=== PATIENT | female | born 1955 | race Caucasian/White ===

== ENCOUNTER → 2016-12-05 | Outpatient (CLI) | payer OTHER ==
[2016-12-05 09:34] LABS: HEMATOCRIT 43.9 % (37-47); MEAN CELL VOLUME 86.9 fL (80-100); MEAN CORPUSCULAR HEMOGLOBIN 30.3 pg (25-34); MEAN CORPUSCULAR HGB CONC 34.9 g/dl (32-36); MEAN PLATELET VOLUME 12.1 fL (7.4-10.4); PLATELET COUNT 240 K/uL (130-400); RED BLOOD COUNT 5.05 M/uL (4.2-5.4); WHITE BLOOD COUNT 6.32 K/uL (4.8-10.8)
[2016-12-05 09:57] LABS: ALT/SGPT 34 U/L (12-78); AST/SGOT 15 U/L (15-37); BLOOD UREA NITROGEN 17 mg/dl (7-18); BUN/CREATININE RATIO 27.5 (10-20); CALCIUM 9.6 mg/dl (8.5-10.1); CARBON DIOXIDE 28 mmol/L (21-32); CHLORIDE 102 mmol/L (98-107); CHOLESTEROL 146 mg/dl (0-200); CREATININE 0.63 mg/dl (0.60-1.20); GLUCOSE 111 mg/dl (70-99); POTASSIUM 3.9 mmol/L (3.5-5.1); SODIUM 138 mmol/L (136-145); TRIGLYCERIDES 91 mg/dl (0-150); VERY LOW DENSITY LIPOPROT CALC 18 mg/dl
[2016-12-05 10:07] LABS: ALB/GLOB RATIO 1.4 (0.9-2); ALKALINE PHOSPHATASE 63 U/L (45-117); CHOLESTEROL/HDL RATIO 2.4; HDL CHOLESTEROL 60 mg/dl; LDL CHOLESTEROL CALCULATED 68 mg/dl
[2016-12-05 10:09] LABS: ESTIMATED AVERAGE GLUCOSE 120 mg/dl; HA1C FLAG Normal (Normal)
== END | disposition home or self-care (01) ==
LOC: C.LAB 07:20
PROVIDERS: ATTEND Family Medicine
DX: Z00.00 Encounter for general adult medical examination without abnormal findings (principal); E78.5 Hyperlipidemia, unspecified; R73.03 Prediabetes

== ENCOUNTER → 2017-03-27 | Outpatient (CLI) | payer OTHER | END | disposition home or self-care (01) | LOC: C.PAPS 15:40 | PROVIDERS: ATTEND Obstetrics & Gynecology | DX: Z01.419 Encounter for gynecological examination (general) (routine) without abnormal findings (principal) ==

== ENCOUNTER → 2017-03-29 | Outpatient (CLI) | payer OTHER ==
--- NOTE | 2017-03-29 15:21 | MAMMOGRAPHY REPORT ---
BILATERAL DIGITAL SCREENING MAMMOGRAM WITH CAD: 03/29/2017 CLINICAL HISTORY: Routine screening. Patient has no complaints. TECHNIQUE: Current study was also evaluated with a Computer Aided Detection (CAD) system. Bilateral CC and MLO views were obtained. COMPARISON: Comparison is made to exams dated: 03/27/2016 mammogram, 03/23/2015 mammogram, 03/06/2014 ma mmogram, 03/05/2013 mammogram, 12/19/2011 mammogram, and 11/07/2010 mammogram - [facility]. BREAST COMPOSITION: There are scattered areas of fibroglandular density in both breasts. FINDINGS: No suspicious masses, calcifications, or areas of architectural distortion are noted in ei ther breast. There has been no significant interval change compared to prior exams. IMPRESSION: ACR BI-RADS CATEGORY 1: NEGATIVE There is no mammographic evidence of malignancy. A 1 year screening mammogram is recommended. The pa tient will receive written notification of the results. Approximately 10% of breast cancers are not detected with mammography. A negative mammographic report should not delay biopsy if a clinically suggestive mass is present. Marcie Westfall M.D. /:03/29/2017 12:04:08 Dry Cell And Battery Assembler: Marsha JONES(Red)(Mabel)(BD), [facility] letter sent: Normal 1/2 BI-RADS Code: ACR BI-RADS Category 1: Negative
== END | disposition home or self-care (01) ==
LOC: C.MAMM 08:25
PROVIDERS: ATTEND Obstetrics & Gynecology
DX: Z12.31 Encounter for screening mammogram for malignant neoplasm of breast (principal)

== ENCOUNTER → 2017-06-01 | Outpatient (CLI) | payer OTHER ==
[2017-06-01 12:39] LABS: ALT/SGPT 73 U/L (12-78); BLOOD UREA NITROGEN 17 mg/dl (7-18); BUN/CREATININE RATIO 24.8 (10-20); CALCIUM 9.4 mg/dl (8.5-10.1); CARBON DIOXIDE 30 mmol/L (21-32); CHLORIDE 103 mmol/L (98-107); CHOLESTEROL 136 mg/dl (0-200); CREATININE 0.69 mg/dl (0.60-1.20); GLUCOSE 109 mg/dl (70-99); POTASSIUM 4.1 mmol/L (3.5-5.1); SODIUM 138 mmol/L (136-145); TRIGLYCERIDES 59 mg/dl (0-150); VERY LOW DENSITY LIPOPROT CALC 12 mg/dl
[2017-06-01 12:42] LABS: ALB/GLOB RATIO 1.6 (0.9-2); ALKALINE PHOSPHATASE 69 U/L (45-117); AST/SGOT 31 U/L (15-37); CHOLESTEROL/HDL RATIO 2.4; HDL CHOLESTEROL 56 mg/dl; LDL CHOLESTEROL CALCULATED 68 mg/dl
[2017-06-01 13:11] LABS: ESTIMATED AVERAGE GLUCOSE 123 mg/dl; HA1C FLAG Normal (Normal)
== END | disposition home or self-care (01) ==
LOC: C.LABPBG 08:48
PROVIDERS: ATTEND Family Medicine
DX: E78.5 Hyperlipidemia, unspecified (principal); R73.03 Prediabetes

== ENCOUNTER → 2018-04-03 | Outpatient (CLI) | payer BC ==
--- NOTE | 2018-04-04 08:09 | MAMMOGRAPHY REPORT ---
BILATERAL DIGITAL SCREENING MAMMOGRAM TOMOSYNTHESIS WITH CAD: 04/03/2018 CLINICAL HISTORY: Routine screening. Patient has no complaints. TECHNIQUE: The study was acquired using full field digital technology and interpreted from soft copy. Tomosynthesis (3D imaging) was done in the CC and MLO projections. A C-view reconstruction was then done. Current study was also evaluated with a Computer Aided Detection (CAD) system. COMPARISON: Comparison is made to exams dated: 03/29/2017 mammogram, 03/27/2016 mammogram, 03/23/2015 ma mmogram, 03/06/2014 mammogram, 03/05/2013 mammogram, and 12/19/2011 mammogram - [facility]. BREAST COMPOSITION: There are scattered areas of fibroglandular density in both breasts. FINDINGS: There are minimal vascular calcifications in the breasts. An asymmetry in the superior rig ht breast on the MLO view appears stable dating back to at least 2007, therefore likely benign. No ne w suspicious mass, architectural distortion or cluster of microcalcifications is seen. IMPRESSION: ACR BI-RADS CATEGORY 1: NEGATIVE There is no mammographic evidence of malignancy. A 1 year screening mammogram is recommended.( 019) The patient will receive written notification of the results. Approximately 10% of breast cancers are not detected with mammography. A negative mammographic report should not delay biopsy if a clinically suggestive mass is present. Bertha Brooke M.D. ay/:04/03/2018 09:18:30 Powerhouse Laborer: RT Ramses(Red)(Mabel)(BD), [facility] letter sent: Normal 1/2 BI-RADS Code: ACR BI-RADS Category 1: Negative
== END | disposition home or self-care (01) ==
LOC: C.MAMM 08:27
PROVIDERS: ATTEND Obstetrics & Gynecology
DX: Z12.31 Encounter for screening mammogram for malignant neoplasm of breast (principal)

== ENCOUNTER → 2018-04-09 | Outpatient (CLI) | payer BC | END | disposition home or self-care (01) | LOC: C.PAPS 15:04 | PROVIDERS: ATTEND Obstetrics & Gynecology | DX: Z01.419 Encounter for gynecological examination (general) (routine) without abnormal findings (principal) ==

== ENCOUNTER 2022-11-09 05:59 | Observation (INO) ==
--- NOTE | 2022-10-31 15:27 | PAT Medication Instructions ---
Medication Instructions Date of Service October 31, 2022 Home Medications Medication Instructions Recorded triamcinolone acetonide 0.1 % 1 applic topical BID PRN rash #80 08/16/22 topical cream grams doxycycline hyclate 100 mg capsule 200 mg PO ONCE PRN tick bites #10 10/19/22 caps metformin 1,000 mg tablet 1,000 mg PO BID #180 tabs 10/19/22 multivitamin 1 tab PO QAM calcium carbonate 600 mg-vitamin D3 5 mcg (200 unit) capsule (Calcium 600 + D(3)) 1 cap PO BID triamcinolone acetonide 0.1 % topical cream 1 applic topical BID PRN rash doxycycline hyclate 100 mg capsule 200 mg PO ONCE PRN tick bites metformin 1,000 mg tablet 1,000 mg PO BID Relief Factor 1 packet PO QAM ascorbic acid (vitamin C) 500 mg tablet (Vitamin C) 500 mg PO QAM rosuvastatin 20 mg tablet 20 mg PO HS sour bailon extract 1,000 mg capsule 2,000 mg PO QAM Continue as directed doxycycline hyclate 100 mg capsule 200 mg PO ONCE PRN tick bites (if needed) STOP taking 2 weeks before surgery (or as soon as possible if surgery is within 2 weeks) Relief Factor 1 packet PO QAM sour bailon extract 1,000 mg capsule 2,000 mg PO QAM STOP taking 24 hours before surgery triamcinolone acetonide 0.1 % topical cream 1 applic topical BID PRN rash DO NOT take the morning of surgery multivitamin 1 tab PO QAM calcium carbonate 600 mg-vitamin D3 5 mcg (200 unit) capsule (Calcium 600 + D(3)) 1 cap PO BID metformin 1,000 mg tablet 1,000 mg PO BID ascorbic acid (vitamin C) 500 mg tablet (Vitamin C) 500 mg PO QAM Take evening before surgery calcium carbonate 600 mg-vitamin D3 5 mcg (200 unit) capsule (Calcium 600 + D(3)) 1 cap PO BID metformin 1,000 mg tablet 1,000 mg PO BID rosuvastatin 20 mg tablet 20 mg PO HS Other Notes If you have any questions please call us at [phone] or [phone] or [phone] or [phone]
--- NOTE | 2022-11-02 09:57 | Anesthesiology Consultation ---
Date of Service November 02, 2022 Assessment & Plan (1) Encounter for pre-operative examination: Chart Review Chart Review: Acceptable Risk for Surgery and Patient seen in Pre Admission Testing - Check BSG AM DOS Pt would NOT like her sister to know any medical/surgical information- patient's sister will not be present DOS- will only be picking patient up next day -Pt is not a Same Day Joint candidate- due to no home support Per PAT appt on 10/30/22, patient recently traveled to [place]- returned 10/31/22. Traveled by car (was on vacation). Pt picked up sister 10/19/22- sister coughing 10/19/22- patient stared coughing 10/20/22. Sister tested Covid positive - patient tested Covid positive 10/21/22 at [facility] in [place] (test scanned into system). Had sore throat and cough- symptoms have since resolved. Pt is vaccinated for Covid. Due to 90 day protocol- patient will not need repeat Covid testing preoperatively or DOS due to inpatient status. Teaching & Discussion Pre-Anesthesia Teaching/Discussion Notes: Instructed NPO after midnight before surgery,except medications with 15 cc of water. Medication instructions provided according to the PAT guidelines. History Surgery Operation Date: 11/09/22 08:50 Proposed Procedures p Right Total Hip Arthroplasty - Trenton Murrieta MD Height/Weight Height: 5 ft 2.5 in Weight: 67.1 kg Allergies Allergy/AdvReac Type Severity Reaction Status Date / Time erythromycin base AdvReac Intermediate Vomiting Verified 10/31/22 13:25 Medications Home Medications Medication Instructions Recorded Confirmed Last Taken multivitamin 1 tab PO QAM 12/09/18 10/31/22 08/29/21 calcium carbonate 600 mg-vitamin 1 cap PO BID 12/21/20 10/31/22 08/29/21 D3 5 mcg (200 unit) capsule (Calcium 600 + D(3)) triamcinolone acetonide 0.1 % 1 applic topical BID PRN rash #80 08/16/22 10/31/22 Unknown topical cream grams doxycycline hyclate 100 mg capsule 200 mg PO ONCE PRN tick bites #10 10/19/22 10/31/22 Unknown caps metformin 1,000 mg tablet 1,000 mg PO BID #180 tabs 10/19/22 10/31/22 Unknown Relief Factor 1 packet PO QAM 10/31/22 10/31/22 Unknown ascorbic acid (vitamin C) 500 mg 500 mg PO QAM 10/31/22 10/31/22 Unknown tablet (Vitamin C) rosuvastatin 20 mg tablet 20 mg PO HS 10/31/22 10/31/22 Unknown sour bailon extract 1,000 mg 2,000 mg PO QAM 10/31/22 10/31/22 Unknown capsule Past Medical History Medical History (Updated 11/02/22 @ 10:33 by Radha Melendez PA-C) Allergic rhinitis Hiatal hernia with GERD Well controlled and stable History of COVID-19 10/20/22, home test and tested at [facility] in [place] (10/21/22), not hosp; sore throat, fever for 3-4 hours only, cough; given antiviral thru urgent care in [place] >tested (-) 10/24/22 > symptoms have since resolved Hyperlipidemia Lumbar spondylosis Multinodular goiter Pt unaware Prediabetes oral meds Exercise / Class Metabolic Activity II 4-5 Yardwork/Stairs/Walk up hill (one flight of stairs - no chest pain or SOB ) Past Family History Family History Father Thyroid disease Mother Hx of CABG Coronary heart disease Myocardial infarction Malignant melanoma Brother Diabetes Heart disease Sister Thyroid disease Past Surgical History Surgical History History of cataract surgery (2020) RT/ LT History of section x1 History of colonoscopy History of detached retina repair right History of dilatation and curettage S/P trigger finger release (11/2018) L hand and R hand Past Anesthesia History No Hx of Anesthesia Complications and No Family Hx of Anesthesia Complications History of PONV No Hx of PONV and No Hx of Motion Sickness Social History Smoking Status: Never smoker Do You Dip or Chew Tobacco: No Hx Alcohol Use: No Hx Substance Use: No substance use type: does not use Review of Systems Snoring unknown- sleeps alone Patient denies chest pain, shortness of breath, dyspnea on exertion, cough, wheezing, palpitations. No hx of seizures, stroke, AR. No hx of blood clots or blood transfusions Physical Exam Vital Signs VITALS BP 133/52 P 82 TEMP 98.1 SP02 95% RESP 16 Constitutional no acute distress ENMT Mouth: no TMJ clicking Thyromental Distance: > or= 3.5 Finger Breadths (3.5) Mallampati Class: I Caps to molars Neck neck extension not limited Respiratory normal respiratory effort; no respiratory distress Auscultation: lungs clear to auscultation bilaterally; no wheezes Cardiovascular Rate/Rhythm: regular rate and regular rhythm Heart Sounds: no murmur Vessels: no carotid bruit Musculoskeletal Spine: no pain with cervical ROM Extremities: extremities normal to inspection Psychiatric Orientation: alert Lab Results Anesthesia Preop Results Results Anesthesia Widget: WBC 6.05 K/ul (4.8-10.8) 11/02/22 Hgb 14.0 g/dl (12.0-16.0) 11/02/22 Hct 40.4 % (37.0-47.0) 11/02/22 Plt 287 K/uL (130-400) 11/02/22 Na 138 mmol/L (136-145) 11/02/22 K 3.7 mmol/L (3.5-5.1) 11/02/22 Cl 103 mmol/L (98-107) 11/02/22 CO2 29 mmol/L (21-32) 11/02/22 BUN 16 mg/dl (6-23) 11/02/22 Creat 0.59 mg/dl (0.6-1.2) L 11/02/22 Glucose Level 99 mg/dl (70-99(Fasting)) 11/02/22 PT 10.3 Seconds (9.0-12.0) 11/02/22 PTT 27.3 Seconds (21.0-31.0) 11/02/22 INR 1.0 (0.9-1.1) 11/02/22 HA1c 6.0 % (4.5-5.6) H 11/02/22 Blood Type A Positive 11/02/22 Antibody Screen NEGATIVE 11/02/22 Testing Electrocardiogram Date: 11/02/22 Findings: + NSR @ (76bpm ) Normal EKG per cardio Chest X-Ray Date: 11/02/22 Findings: + NAD
[2022-11-09] MEDS ORDERED: FAMOTIDINE 20 MG TAB PO SCH (06:00)
[2022-11-09] MEDS ORDERED: ACETAMINOPHEN 500 MG TAB PO SCH (06:00)
[2022-11-09] MEDS ORDERED: LR 60ML/HR IV SCH (06:00)
[2022-11-09] MEDS ORDERED: ceFAZolin 2000MG 2,000 MG/15 ML SYR IV SCH (06:00)
[2022-11-09] MEDS ORDERED: LR 500ML BOLUS, THEN 15ML/HR IV SCH (06:00)
[2022-11-09] MEDS ORDERED: CeleBREX 200 MG CAP PO SCH (06:00)
[2022-11-09] MEDS ORDERED: METOCLOPRAMIDE HCL 10 MG TABLET PO SCH (06:00)
[2022-11-09] MEDS ORDERED: BUPIVACAINE 0.5 % 5 MG/1 ML PF 10ML VIAL ONE (06:24)
--- NOTE | 2022-11-09 06:58 | History & Physical Bridge Note ---
Date of Service November 09, 2022 History & Physical Bridge Note I have examined the patient, reviewed the History & Physical and in the interval since the performance of the History & Physical I have noted the following changes of clinical significance: no changes noted
[2022-11-09] MEDS ORDERED: ATROPINE SULFATE 0.1 MG/ML 10ML SYR IV PRN (07:12)
[2022-11-09] MEDS ORDERED: ePHEDrine sulfate 50 MG/ML AMP IV PRN ×2 (07:12→08:43)
[2022-11-09] MEDS ORDERED: fentaNYL citrate 100 MCG/2 ML VIAL IV PRN (07:12)
[2022-11-09] MEDS ORDERED: ONDANSETRON INJ 2 MG/ML 2 ML VIAL IV PRN ×2 (07:12→08:43)
[2022-11-09] MEDS ORDERED: fentaNYL citrate 100 MCG/2 ML VIAL ONE (07:35)
[2022-11-09] MEDS ORDERED: MIDAZOLAM HCL 1 MG/ML 2ML VIAL ONE (07:35)
[2022-11-09] MEDS ORDERED: MoRPHine SULFATE PF 1 MG/ML 10 ML AMP/VIAL ONE (07:36)
[2022-11-09] MEDS ORDERED: BUPIVACAINE/EPINEPHRINE 0.5% MPF 1:200,000 30 ML VIAL ONE (08:22)
[2022-11-09] MEDS: TRANEXAMIC ACID 1,000 MG **IV Pre-op IV SCH ×2 (08:23→17:06)
[2022-11-09] MEDS ORDERED: diphenhydrAMINE 50 MG/ML VIAL IV PRN (08:43)
[2022-11-09] MEDS ORDERED: NALOXONE HCL 0.08 MG in SYRINGE 1.8 ML IV PRN (08:43)
[2022-11-09] MEDS ORDERED: NALOXONE HCL 0.4 MG/1 ML VIAL/CARP IV PRN ×2 (08:43→10:45)
[2022-11-09] MEDS ORDERED: NALBUPHINE HCL INJ 10 MG/ML AMP IV PRN (08:43)
[2022-11-09] MEDS ORDERED: MoRPHine SULFATE PF 1 MG/ML 10 ML AMP/VIAL INT SPINAL ONE (08:43)
[2022-11-09] MEDS ORDERED: NALOXONE HCL 1 MG in SODIUM CHLORIDE 0.9% 1000ML 1,000 ML IV PRN (08:43)
[2022-11-09] MEDS ORDERED: LACTATED RINGER'S 500 ML IV PRN (08:43)
[2022-11-09] MEDS ORDERED: SODIUM CHLORIDE 0.9% 1000ML 1,000 ML IV SCH (08:45)
[2022-11-09] MEDS ORDERED: NO NARCOTICS OR SEDATIVES SCH (08:45)
[2022-11-09] MEDS ORDERED: DC INTRASPINAL MORPHINE SCH (08:45)
[2022-11-09] MEDS ORDERED: PROPOFOL IV EMULSION 10 MG/ML 20 ML VIAL IV ONE (08:56)
[2022-11-09] MEDS ORDERED: DEXAMETHASONE SOD INJ 4 MG/ML VIAL ONE (08:59)
[2022-11-09] MEDS ORDERED: KETOROLAC 30 MG/ML VIAL ONE (08:59)
[2022-11-09] MEDS ORDERED: ONDANSETRON INJ 2 MG/ML 2 ML VIAL ONE (09:01)
[2022-11-09] MEDS ORDERED: PHENYLEPHRINE HCL 10 MG/ML VIAL ONE (09:09)
[2022-11-09] MEDS ORDERED: ePHEDrine sulfate 50 MG/ML SYR ONE (09:09)
--- NOTE | 2022-11-09 10:25 | Operative Report ---
PG Post Operative Report Pre & Post Diagnosis Operation Date: 11/09/22 08:50 Pre-Op Diagnosis: Right Hip Advanced Degenerative Joint Disease Post-Op Diagnosis: Right Hip Advanced Degenerative Joint Disease I identified the patient and participated in the time-out.: Yes Procedure Operation Date: 11/09/22 08:50 Actual Procedures p Right Total Hip Arthroplasty- Uncemented(Right) - Trenton Murrieta MD Surgeon Trenton Murrieta MD Industrial Retrofit Designer Rob Blake PA-C Estimated Blood Loss 100 Findings Consistent with Post-Op Diagnosis Operative findings were advanced right hip DJD. She had grade 4 [id number] disease of the femoral head and acetabulum. That she did have a fairly significant medial acetabular osteophyte as well as some anterior acetabular osteophytes. Moderate-sized joint effusion. Specimens Right femoral head sent for pathology Drains None Anesthesia Type Spinal MAC Complications none Disposition Accompanied Patient To Recovery: No Indications Patient is a 67-year-old fairly active and independent female whose had a several year history increasing right hip pain discomfort describes gotten worse. She also has a history of back problems a. These 2 things together really started debilitate her. Hip pain is gradually gotten worse and she is elected proceed with total hip arthroplasty. We made her fully aware this may not improve her back symptoms. Description of Procedure Operative implants consist of: 1 Biomet G7 size 52 mm acetabular shell. 2. 6.5 cancellous acetabular screws 1 of 35 mm in length with 25 mm length. 3. Leivasy hole limiter. 4. Highly cross-linked polyethylene liner with a 52 mm outer diam and 36 mm inner diameter. 5. DePuy Corail size 11 KLA femoral stem. 6. +5/36 mm ceramic articular ball. The patient was taken to the operating, identified, placed on the operating table supine position but all contact areas were appropriately padded. IV antibiotics tried by anesthesia team. A spinal anesthetic been implemented holding area. Jackson catheter was placed in sterile fashion. The patient then placed in the left lateral cubitus position. Axillary roll was placed. Stulberg hip positioner was used for positioning. The right hip and leg were then prepped and draped in usual sterile fashion. A posterolateral approach to the right hip was then performed to a curvilinear incision centered over the greater trochanter. Sharp dissection was carried through subcutaneous tissue down to the IT band gluteal fascia the IT band gluteal fascia were incised longitudinally in line with skin incision. The underlying greater bursa was excised. The piriformis and external rotators and the posterior hip joint capsule were then released from the posterior aspect hip as a single layer. The hip was internally rotated and dislocated. Femoral neck osteotomy cut was made with Final Cut about 10 mm above the lesser trochanter. Femoral head was removed and sent for pathology. The femur was retracted anteriorly. The acetabular labrum was excised. It was fairly ossified. Pulmonary fat was excised. Sequential reaming the acetabulum was then performed again with size 43 and progressing up to 51. I did reamed a little bit with a 52 reamer and then placed a 52 mm acetabular shell in about 40 degrees lateral opening and 20 degrees of anteversion. Was fixed with two 6.5 cancellous acetabular screws. Some anterior osteophytes removed. Trial liner was placed. Attention drawn the femur. The proximal femur was entered with a Acumen cutter followed by canal finder. I then broached begin the size 8 and progressing up to 11. Got excellent fit at 11. I then trialed the hip. The +5 articular ball provide full stability in full extension and external rotation flexion to 90 degrees internal Tatian over 50 degrees. Leg length seemed appropriate. Soft tissue tension seemed appropriate. We elect to place these implants. Nupathe all trial implants were removed. An apex hole limiter was placed. Highly cross-linked polyethylene liner was placed. We did use a hathaway and placed this inferior and posterior to maximize her stability in flexion. A DePuy KLA size 11 femoral stem was impacted in position. +5/36 mm ceramic articular ball was placed. Hip was located once again found to be stable. Attention drawn to closing. The wounds irrigated cosigns pulsatile lavage solution. I did inject locally with 60 cc of half percent Marcaine with epinephrine. The posterior capsule and external rotators were then repaired through drill holes in the posterior trochanter with #2 Tycron suture. The IT band gluteal fascia then closed in 1 PDS suture in a running fashion for subcutaneous tissue then closed with 2 layers the deep layer #1 Vicryl suture in the subcutaneous tissue with 2-0 Dexon suture in buried interrupted fashion the skin was closed with skin tish. Leg was then cleaned and dried and sterile dressing was Xeroform, 4 fours, sterile ABD pad, foam tape was applied. The patient then transferred to the recovery room in stable condition. Patient tolerated procedure well and there were no complications. Rob Blake, my physician assistant track coach, was present for the entire procedure. His assistance was essential and required for appropriate patient positioning, prepping and draping, surgical exposure, performing the technical details of the operation, placement the implants, closure of the wound, and placement of the sterile bandage. I attest to the content of the Intraoperative Record and any orders documented therein. Any exceptions are noted below.
[2022-11-09] MEDS ORDERED: traMADol HCL 50 MG TABLET PO PRN (10:45)
[2022-11-09] MEDS ORDERED: GLUCOSE 10 TAB/TUBE PO PRN (10:45)
[2022-11-09] MEDS ORDERED: PHARMACY GLYCEMIC MGMT CONSULT PRN (10:45)
[2022-11-09] MEDS ORDERED: MAGNESIUM HYDROXIDE SUSP 30 ML UDC PO PRN (10:45)
[2022-11-09] MEDS ORDERED: GLUCOSE 40% GEL 15 GM TUBE PO PRN (10:45)
[2022-11-09] MEDS ORDERED: CARBOHYDRATES FOR HYPOGLYCEMIA PO PRN (10:45)
[2022-11-09] MEDS ORDERED: DEXTROSE 50% 50 ML SYRINGE IV PRN (10:45)
[2022-11-09] MEDS ORDERED: HYDROmorphone INJ 0.5 MG/0.5 ML SYR IV PRN (10:45)
[2022-11-09] MEDS ORDERED: GLUCAGON FOR INJ 1 MG VIAL SQ PRN (10:45)
[2022-11-09] MEDS ORDERED: ALUMINUM/MAGNESIUM SUSP 30 ML UDC PO PRN (10:45)
[2022-11-09] MEDS ORDERED: TRIAMCINOLONE ACET 0.1% CR 15 GM TUBE TOP PRN (10:45)
[2022-11-09] MEDS ORDERED: bisacodyL 10 MG SUPP PR PRN (10:45)
--- NOTE | 2022-11-09 11:47 | Anesthesiology Progress Note ---
Date of Service November 09, 2022 Anesthesia Post Procedure Vital Signs Vital Signs: Temp Pulse Pulse Resp BP BP Pulse Ox 11/09/22 11:40 97.5 F L 73 18 126/78 98 11/09/22 11:10 11/09/22 11:09 97.7 F 78 18 132/79 100 11/09/22 10:40 77 19 124/66 94 11/09/22 10:30 96.8 F L 80 139/63 11/09/22 10:20 71 13 131/67 92 11/09/22 10:10 96.8 F L 76 14 116/59 L 93 11/09/22 06:20 98.1 F 89 18 159/86 H 166/93 H 97 O2 Del Method O2 Flow Rate 11/09/22 11:40 Nasal Cannula 3 11/09/22 11:10 Nasal Cannula 2 11/09/22 11:09 Room Air 11/09/22 10:40 Room Air 11/09/22 10:30 11/09/22 10:20 Room Air 11/09/22 10:10 Room Air 11/09/22 06:20 Room Air Pain Intensity Right Hip: Pain Intensity: 0 Transfer of Care Handoff Completed per policy Notes Mental Status: alert / awake / arousable and participated in evaluation Patient Amnestic to Procedure: Yes Nausea / Vomiting: adequately controlled Pain: adequately controlled Airway Patency, RR, SpO2: stable & adequate BP & HR: stable & adequate Hydration State: stable & adequate Neuraxial Anesthesia: was administered and sensory block is resolving Anesthetic Complications: no major complications apparent and Pt Satisfied with anesthetic care
[2022-11-09] MEDS: INSULIN ASPART PER UNIT SC SCH ×3 (12:06→21:11)
--- NOTE | 2022-11-09 12:18 | XRay Report ---
AP PELVIS, CROSSTABLE LATERAL RIGHT HIP History: Right total hip arthroplasty. Degenerative arthritis. Postop. FINDINGS: The patient is status post a right total hip arthroplasty. The hardware is intact. No fract ure or dislocation. Skin itsh are in place. IMPRESSION: Right total hip arthroplasty. No evidence for hardware complication ACT 112: Negative or not required by law. Electronically signed by: Obed Sanz M.D. 11/09/2022 12:17 PM
[2022-11-09] MEDS: METOCLOPRAMIDE HCL INJ 5 MG/ML 2 ML VIAL IV PRN ×2 (12:20→19:18)
[2022-11-09] MEDS: SODIUM CHLORIDE 0.9% 1000ML 1,000 ML IV SCH ×2 (12:21→22:30)
[2022-11-09] MEDS ORDERED: LANTUS PER UNIT CHARGE SQ ONE ×2 (12:45→21:00)
--- NOTE | 2022-11-09 14:13 | Pharmacy Report ---
Pharmacy Glycemic Short Note 2 - Date of Service November 09, 2022 - Glycemic Short BSG Results (Last 24 hours): 11/09/22 11/09/22 11/09/22 06:23 10:27 12:17 POC Glucose 109 H 147 H 168 H OUTPATIENT ANTIDIABETIC REGIMEN: * Metformin 1g PO BID * A1c 6% 11/02/22 ASSESSMENT: * 67 year old female s/p Right MICHELLE, received dexamethasone 10mg IV intraop, and has 10mg scheduled for tomorrow morning. * Blood sugars trending up d/t steroids, patient vomiting post-op at lunchtime blood sugar check. * Start basal bolus insulin and hold oral home meds at this time. PLAN FOR INPATIENT GLYCEMIC CONTROL: * Hold outpatient oral diabetes medications * Basal insulin * Lantus 15 units SQ x1 now, then 10 units HS for BSG > 180mg/dl * Further dosing in AM * Bolus insulin * NovoLog per scale ACHS or Q6hrs while NPO * Goal Range: Low 110 mg/dL - High 140 mg/dL * Correction Factor: 25 mg/dL/unit * Nutritional / Prandial insulin per carb ratio of 1 unit per 8 grams CHO consumed
[2022-11-09] MEDS: KETOROLAC TROMETHAMINE 15 MG/ML VIAL IV SCH ×3 (14:24→22:29)
[2022-11-09] MEDS: ACETAMINOPHEN 500 MG TAB PO SCH ×2 (14:27→22:29)
[2022-11-09] MEDS ORDERED: TRANEXAMIC ACID / 0.7% NACL 1,000 MG/100 ML BAG IV SCH (16:15)
[2022-11-09] MEDS: ceFAZolin 1000MG 1,000 MG/7.5 ML SYR IV SCH (17:09)
[2022-11-09] MEDS: CALCIUM 600MG + VIT D 400 IU TAB PO SCH (20:34)
[2022-11-09] MEDS: DOCUSATE SODIUM 100 MG CAP PO SCH (20:34)
[2022-11-09] MEDS: ASPIRIN 81 MG ECTAB PO SCH (20:34)
[2022-11-09] MEDS ORDERED: SENNA 8.6 MG TAB PO SCH (21:00)
[2022-11-09] MEDS ORDERED: ROSUVASTATIN CALCIUM 20 MG TAB PO SCH (21:00)
[2022-11-10] MEDS: ceFAZolin 1000MG 1,000 MG/7.5 ML SYR IV SCH (01:13)
[2022-11-10] MEDS ORDERED: HYDROmorphone INJ 0.5 MG/0.5 ML SYR IV PRN (02:24)
[2022-11-10] MEDS ORDERED: traMADol HCL 50 MG TABLET PO PRN (02:24)
[2022-11-10] MEDS ORDERED: ONDANSETRON INJ 2 MG/ML 2 ML VIAL IV PRN (02:44)
[2022-11-10] MEDS: ACETAMINOPHEN 500 MG TAB PO SCH ×2 (05:39→13:46)
[2022-11-10] MEDS: KETOROLAC TROMETHAMINE 15 MG/ML VIAL IV SCH ×2 (05:39→12:27)
[2022-11-10 06:16] LABS: Basophils # (auto) 0.01 K/uL (0-0.2); Basophils % (auto) 0.1 %; Hematocrit (blood only) 32.6 % (37.0-47.0); Hemoglobin 11.3 g/dl (12.0-16.0); Immature Granulocytes # (auto) 0.05 K/uL (0.01-0.20); Immature Granulocytes % (auto) 0.4 %; Lymphocytes # (auto) 1.33 K/uL (1.2-3.4); Lymphocytes % (auto) 10.3 %; Mean Corpuscular Hemoglobin 30.1 pg (25.0-34.0); Mean Corpuscular Hgb Conc 34.7 g/dL (32.0-36.0); Mean Corpuscular Volume 86.9 fL (80.0-100.0); Mean Platelet Volume 11.7 fL (9.4-12.4); Monocytes % (auto) 13.1 %; Neutrophils # (auto) 9.87 K/uL (1.40-6.50); Neutrophils % (auto) 76.1 %; Platelet Count 232 K/uL (130-400); RDW Coefficient of Variation 12.9 % (11.5-14.5); Red Blood Count 3.75 M/uL (4.20-5.40); White Blood Count 12.96 K/ul (4.8-10.8)
[2022-11-10 06:31] LABS: BUN Creatinine Ratio 37.1 (10-20); Calcium 8.6 mg/dl (8.5-10.1); Creatinine Clr Calc Pharmacy 79.1 ml/min; Est GFR (African American) 106.6 ml/min; Potassium 3.7 mmol/L (3.5-5.1)
--- NOTE | 2022-11-10 07:46 | Progress Notes ---
DATE OF SERVICE: 11/10/2022. SUBJECTIVE: A 67-year-old female postoperative day 1 from a right hip replacement. She is doing muc h better today. A lot of nausea yesterday, but improved. She is hoping to go home. No chest pain o r shortness of breath. Not feeling dizzy or lightheaded. OBJECTIVE: VITAL SIGNS: Temperature is 36.7. Vital signs are stable. GENERAL: Shows a pleasant middle-aged female. She is sitting up in bed, looks much better today. EXTREMITIES: Examination of the right hip reveals the dressing to be clean, dry and intact. Leg lorenzo gths are equal. She can dorsiflex and plantarflex her foot appropriately. She is neurologically int act. LABORATORY DATA: Hemoglobin 11.3. Hematocrit 32.6. Electrolytes are stable. ASSESSMENT: A 67-year-old female postoperative day 1 from a right hip replacement, doing much better . A lot of nausea yesterday, likely due to the spinal and the morphine in the spinal. Seems to be r esolved. We will see how therapy goes today. PLAN: 1. DVT prophylaxis includes thigh-high TEDs, SCDs, and aspirin twice a day. 2. PT/OT, weightbear as tolerated. Right total hip protocol. 3. Pain control, doing okay with current pain regimen. 4. Disposition: Plan is to discharge to home. She is going to have home health and has some family and friends providing assistance. Job ID: [id number]
[2022-11-10] MEDS ORDERED: dexAMETHasone 10 MG in SYRINGE 0 ML IV SCH (08:00)
[2022-11-10] MEDS: DOCUSATE SODIUM 100 MG CAP PO SCH (08:24)
[2022-11-10] MEDS: CALCIUM 600MG + VIT D 400 IU TAB PO SCH (08:25)
[2022-11-10] MEDS: ASPIRIN 81 MG ECTAB PO SCH (08:27)
[2022-11-10] MEDS: INSULIN ASPART PER UNIT SC SCH ×2 (08:53→12:39)
[2022-11-10] MEDS ORDERED: SOUR CHERRY EXTRACT 1000 MG PO SCH (09:00)
[2022-11-10] MEDS ORDERED: MULTIVITAMIN TAB PO SCH (09:00)
[2022-11-10] MEDS ORDERED: DOCUSATE SODIUM/SENNA 50/8.6MG TAB PO SCH (09:00)
[2022-11-10] MEDS ORDERED: LANTUS PER UNIT CHARGE SQ ONE (09:00)
[2022-11-10] MEDS ORDERED: RELIEF FACTOR PO SCH (09:00)
[2022-11-10] MEDS ORDERED: NON-FORMULARY MEDICATION (Multivitamin Tablet) PO SCH (09:00)
[2022-11-10] MEDS ORDERED: ASCORBIC ACID 500 MG TAB PO SCH (09:00)
--- NOTE | 2022-11-14 13:32 | Discharge Summary ---
Date of Service November 14, 2022 Discharge Data Procedures Performed Operation Date: 11/09/22 08:50 Actual Procedures p Right Total Hip Arthroplasty- Uncemented(Right) - Trenton Murrieta MD Hospital Course (1) S/P total right hip arthroplasty: This is a 67 year old patient admitted on 11/09/22 and underwent total hip arthroplasty. She tolerated the procedure well and there were no complications. Transferred to the PACU post op and later to the orthopedic floor for further care. She was given ancef for antibiotic prophylaxis. She was also given ADOLFO stockings, SCDs, and aspirin for DVT prophylaxis. Hemoglobin, hematocrit, and vital signs were monitored during her hospital stay and remained stable. Did not require any blood transfusions. There were no complications during her hospital stay. By post op day #1 the patient was tolerating a diabetic diet, pain was reasonably controlled with oral pain medicine, and she was participating in physical therapy. On post op day #1 the patient was discharged home and set up with home health care. She was given printed discharge instructions including prescriptions for extra strength tylenol, aspirin, cefadroxil, ketorolac, zofran, and tramadol. Continue physical therapy, weight bearing as tolerated. Continue hip precautions. Continue ADOLFO stockings. Follow up approximately 2 weeks post op or sooner if there are problems or concerns. Coding Level of Care Code None Diagnoses S/P total right hip arthroplasty Z96.641
== END 2022-11-10 14:13 | disposition home health service (06) ==
LOC: 3E 05:59 → ASU 05:59
DX: M16.11 Unilateral primary osteoarthritis, right hip; Z79.82 Long term (current) use of aspirin; Z88.1 Allergy status to other antibiotic agents; Z79.899 Other long term (current) drug therapy; Z79.84 Long term (current) use of oral hypoglycemic drugs; M47.816 Spondylosis without myelopathy or radiculopathy, lumbar region